=== PATIENT | female | born 1950 | race Caucasian/White ===

== ENCOUNTER 2016-12-27 19:39 | Emergency (ER) | payer MEDICARE, BC ==
[~2016-12-27] VITALS: Ht 154.9 cm; Wt 65.4 kg
[~2016-12-27 19:39] MED LIST: ASPIR-LOW81 M1 PO; CO Q-10100 M2 PO; CYCLOBENZAPRINE5 M1 PO; ELIDEL30 GM TP; GLUCOSAMINE CH1 EA13 PO; LEVSIN0.125 M1 PO; LIPITOR20 M1 PO; MULTIVITAMINS1 EAC6 PO; NASACORT10.8 M1 NS; PATANASE30.5 G1; PATANASE30.5 G1 NS; PREVACID30 M3 PO; SINGULAIR10 M1 PO; SYNTHROID25 MC1 PO; TOPROL XL25 M1 PO; VAGIFEM10 MC1 VG; VITAMIN D2000 UNIT PO; VOLTAREN100 G1 TP; XANAX0.5 M1 PO; ZYRTEC10 M7 PO
[2016-12-27] MEDS ORDERED: ELOCON15 G1 TP (21:18)
[2016-12-27] MEDS ORDERED: NASACORT10.8 M1 (21:19)
[2016-12-27] MEDS ORDERED: PROTONIX40 M2 PO (21:19)
[2016-12-27] MEDS ORDERED: LIPITOR20 M1 PO (21:19)
[2016-12-27] MEDS ORDERED: PATANOL5 M1 EACH EYE (21:20)
[2016-12-27] MEDS ORDERED: CO Q-10100 M2 PO (21:21)
[2016-12-27] MEDS ORDERED: IBUPROFEN200 M2 PO (21:21)
[2016-12-27] MEDS ORDERED: METAMUCIL660 GM (21:23)
[2016-12-27] MEDS ORDERED: PREVIDENT 500051 GM DT (21:23)
[2016-12-27] MEDS ORDERED: PROCTOCORT30 M1 (21:25)
[2016-12-27] MEDS ORDERED: PERCOCET 5-3251 EACH PO (23:38)
[2016-12-27] MEDS ORDERED: MIRALAX17 G2 PO (23:38)
== END 2016-12-28 00:28 ==
LOC: EDMED 19:39
DX: S42.212A Unspecified displaced fracture of surgical neck of left humerus, initial encounter for closed fracture (principal); S83.92XA Sprain of unspecified site of left knee, initial encounter; F41.9 Anxiety disorder, unspecified; Z79.899 Other long term (current) drug therapy; W10.1XXA Fall (on)(from) sidewalk curb, initial encounter